=== PATIENT | female | born 1950 | race Caucasian/White ===

== ENCOUNTER 2019-09-21 12:11 | Outpatient (CLI) | payer MEDICARE, OTHER, SELFPAY ==
--- NOTE | 2019-09-21 12:27 | XRR_ITS ---
PROCEDURE INFORMATION: Exam: XR Right Foot Complete Exam date and time: 09/21/2019 12:56 PM Age: 69 years old Clinical indication: Pain; Ankle and foot; Right; Additional info: Pain in joint TECHNIQUE: Imaging protocol: XR Right foot. Views: 3 or more views. COMPARISON: CR Ankle 3 views, RIGHT* [id number] 01/09/2018 1:29 PM FINDINGS: Bones/joints: There is osteopenia. ThereThere is no evidence for acute fracture or malalignment. There is joint space narrowing and osteophyte formation at the right 1st MTP joint. Soft tissues: Normal. XR/XR foot RT min 3V* [id number] IMPRESSION: No acute findings.
--- NOTE | 2019-09-21 12:28 | XRR_ITS ---
PROCEDURE INFORMATION: Exam: XR Right Ankle Exam date and time: 09/21/2019 12:58 PM Age: 69 years old Clinical indication: Pain; Ankle and foot; Right; Additional info: Pain in joint TECHNIQUE: Imaging protocol: XR Right ankle. Views: 3 or more views. COMPARISON: CR Ankle 3 views, RIGHT* [id number] 01/09/2018 1:29 PM FINDINGS: Bones/joints: There is no evidence for acute fracture or malalignment. There is osteopenia. Soft tissues: Normal. XR/XR ankle RT min 3V* [id number] IMPRESSION: No acute findings.
== END 2019-09-21 12:12 | disposition home or self-care (01) ==
LOC: RAD 12:16
PROVIDERS: PCP Family Medicine; Visit Provider Family Medicine
DX: M25.571 Pain in right ankle and joints of right foot (principal)
CPT/HCPCS: 73610; 73630

== ENCOUNTER → 2020-10-03 08:47 | Outpatient (BNVA) | payer MEDICARE, OTHER, SELFPAY | PROVIDERS: PCP Family Medicine; Visit Provider Surgery | DX: Z01.812 Encounter for preprocedural laboratory examination (principal); Z20.822 Contact with and (suspected) exposure to COVID-19 | CPT/HCPCS: 87635 ==